=== PATIENT | female | born 1935 | race Caucasian/White ===

== ENCOUNTER 2020-01-01 15:59 | Observation (INO) | payer MEDICARE, OTHER ==
[~2020-01-01] VITALS: Ht 162.6 cm; Wt 57.1 kg
[~2020-01-01 15:59] MED LIST: Aspir 8181 MG PO; CALCIT950 PO; CLOP75 PO; ESTR25VT PV; GLUCHON PO; LOVA40 PO; MACROBID PO; PRELIEF PO; ZOLP10 PO
[2020-01-01 16:39] LABS: BASOPHILS ABSOLUTE AUTO 0.04 K/mm3 (0.00-0.23); BASOPHILS PERCENT AUTO 1 % (0-2); EOSINOPHILS PERCENT AUTO 3 % (0-6); Hematocrit 38.7 % (33.0-51.0); Hemoglobin 12.3 g/dL (11.5-16.0); IMMATURE GRAN ABSOLUTE AUTO 0.02 K/mm3 (0.00-0.10); IMMATURE GRAN PERCENT AUTO 0 % (0-1); LYMPHOCYTES ABSOLUTE AUTO 1.31 K/mm3 (0.84-5.20); LYMPHOCYTES PERCENT AUTO 17 % (21-46); MONOCYTES ABSOLUTE AUTO 0.73 K/mm3 (0.16-1.47); MONOCYTES PERCENT AUTO 9 % (4-13); Mean Corpuscular HGB 28.3 pg (26.0-34.0); Mean Corpuscular HGB Conc 31.8 g/dL (31.5-36.5); Mean Corpuscular Volume 89 fL (80-100); Mean Platelet Volume 10.5 fL (9.1-12.4); NEUTROPHILS ABSOLUTE AUTO 5.45 K/mm3 (1.96-9.15); NEUTROPHILS PERCENT AUTO 70 % (41-73); Platelet Count 315 K/mm3 (150-400); RDW Coefficient Variation 13.3 % (11.7-14.2); RDW Standard Deviation 43.8 fL (35.1-46.3); Red Blood Cell Count 4.34 M/mm3 (3.80-5.20); White Blood Cell Count 7.75 K/mm3 (4.00-11.30)
[2020-01-01 16:51] LABS: Alanine Aminotransfer (ALT/SGP 27 U/L (12-78); Albumin, Blood 3.3 g/dL (3.4-5.0); Alk Phos 53 U/L (50-136); Anion Gap 7 mmol/L (6-16); Aspartate Aminotrans (AST/SGOT 27 U/L (12-37); Bilirubin, Total 0.4 mg/dL (0.1-1.0); Blood Urea Nitrogen 23 mg/dL (8-24); Bun/Creatinine Ratio 28.7 (12.0-20.0); CO2, Blood 26 mmol/L (21-32); Chloride, Blood 108 mmol/L (98-108); Globulin, Blood 3.2 g/dL (2.2-4.0); Glomerular Filtration Rate >60 (60-); Glucose, Blood 96 mg/dL (70-99); Potassium, Blood 4.4 mmol/L (3.5-5.5); Sodium, Blood 141 mmol/L (136-145); Total Protein, Blood 6.5 g/dL (6.4-8.2)
[2020-01-01] MEDS ORDERED: LOSA25 PO (19:10)
[2020-01-01] MEDS ORDERED: FLUT.05NI (19:11)
[2020-01-01 19:36] LABS: Cholesterol 162 mg/dL (50-200); HDL Cholesterol 41 mg/dL (>39); LDL/HDL RATIO 2.4; Low Density Lipoprotein Chol 100 mg/dL (0-110); Triglycerides 106 mg/dL (30-160); Very Low Density Lipoprot Chol 21 mg/dL (6-32)
--- NOTE | 2020-01-02 05:41 | NUR ---
SHIFT SUMMARY RECIEVED REPORT FROM MARGUERITE WHEAT, ED @ 2107. ARRIVED TO MEDICAL UNIT @ 2101; MINIMAL ASSISTANCE NEEDED FOR TRANSFER. ORIENTED TO ROOM AND CALL SYSTEM. A/O, ABLE TO MAKE NEEDS KNOWN. COOPERATIVE WITH CARE. HOPEFUL TO RETURN HOME THIS DAY AFTER TESTING IS COMPLETE. C/O HEADACHE; MEDICATED PER EMAR. APPEARED TO REST MUCH OF SHIFT. NO ACUTE CHANGES NOTED. NEURO EXAM WNL; GAIT STEADY. VSS/AFEBRILE. BED REAMINS IN LOWEST POSITION. CALL LIGHT AND BELONGINGS WITHIN REACH. WCTM. REPORT TO LASHON WHEAT.
--- NOTE | 2020-01-02 18:08 | NUR ---
PATIENT HAS BEEN COOPERATIVE AND PLEASANT WITH STAFF. NO COMPLAINTS OF PAIN OR DISCOMFORT. BP HAS BEEN ELEVATED AND THE PHYSCIAN HAS BEEN ADJUSTING MEDICATIONS TO ATTEMPT TO HAVE BETTER CONTROL OVER HER BP WITHOUT BOTTOMING OUT HER HR TOO MUCH. PATIENT IS ALERT AND ORIENTED AND INDEPENDANT. SHE IS IN HER ROOM RESTING AT THIS TIME. WILL CONTINUE TO MONITOR AND PROVIDE CARE NEEDED.
[2020-01-03 04:51] LABS: BASOPHILS ABSOLUTE AUTO 0.04 K/mm3 (0.00-0.23); BASOPHILS PERCENT AUTO 1 % (0-2); EOSINOPHILS PERCENT AUTO 4 % (0-6); Hematocrit 39.7 % (33.0-51.0); Hemoglobin 12.4 g/dL (11.5-16.0); IMMATURE GRAN ABSOLUTE AUTO 0.01 K/mm3 (0.00-0.10); IMMATURE GRAN PERCENT AUTO 0 % (0-1); LYMPHOCYTES ABSOLUTE AUTO 1.55 K/mm3 (0.84-5.20); LYMPHOCYTES PERCENT AUTO 23 % (21-46); MONOCYTES ABSOLUTE AUTO 0.76 K/mm3 (0.16-1.47); MONOCYTES PERCENT AUTO 11 % (4-13); Mean Corpuscular HGB 27.9 pg (26.0-34.0); Mean Corpuscular HGB Conc 31.2 g/dL (31.5-36.5); Mean Corpuscular Volume 89 fL (80-100); NEUTROPHILS ABSOLUTE AUTO 4.17 K/mm3 (1.96-9.15); NEUTROPHILS PERCENT AUTO 61 % (41-73); Platelet Count 272 K/mm3 (150-400); RDW Coefficient Variation 13.3 % (11.7-14.2); RDW Standard Deviation 43.7 fL (35.1-46.3); Red Blood Cell Count 4.45 M/mm3 (3.80-5.20); White Blood Cell Count 6.83 K/mm3 (4.00-11.30)
[2020-01-03 05:13] LABS: Anion Gap 6 mmol/L (6-16); Blood Urea Nitrogen 19 mg/dL (8-24); Bun/Creatinine Ratio 23.8 (12.0-20.0); CO2, Blood 23 mmol/L (21-32); Calcium, Blood 9.1 mg/dL (8.5-10.1); Chloride, Blood 112 mmol/L (98-108); Glomerular Filtration Rate >60 (60-); Glucose, Blood 100 mg/dL (70-99); Potassium, Blood 4.2 mmol/L (3.5-5.5); Sodium, Blood 141 mmol/L (136-145)
--- NOTE | 2020-01-03 05:20 | NUR ---
SHIFT SUMMARY- PT. A&O, PLEASANT AND COOPERATIVE WITH CARE. NO DEFICITS NOTED. PT. C/O HADLEY 08/18. MEDICATED PER EMAR WITH GOOD EFFECT. PT. RESTING QUIETLY T/O THE NIGHT. NO APPARENT DISTRESS NOTED. ANTICIPATING D/C TO HOME TODAY. CALL LIGHT WITHIN REACH AND SIDE RAILS UPX2. WILL CONT TO MONITOR.
--- NOTE | 2020-01-03 16:46 | NUR ---
PM BLOOD GLUCOSE 240 - PT ENTERED INTO INSULIN PUMP FOR BOLUS
--- NOTE | 2020-01-03 17:05 | NUR ---
SHIFT SUMMARY PT A&Ox4; CALM AND COOPERATIVE [facility] CARE. PT RESTING IN BED DURING SHIFT. UP TO BATHROOM IND. PT REPROTS HEADACHE FOR MAJORITY OF SHIFT, MEDICATED WITH TYLENOL WITH MNIMAL EFFECT. PT DENIES CHEST PAIN/PRESSURE, SOB, NASUEA AND DIZZINESS T/O SHIFT. PT HAD CTA COMPLETED THIS AM. ELEVATED BP NOTED; MEDICATED WITH SCHEDULE AND PRN MEDICATIONS. NO OTHER ACUTE CHANGES NOTED DURING SHIFT. WILL CONTINUE TO MONITOR UNTIL REPORT GIVEN TO ONCOMING RN.
[2020-01-03] MEDS ORDERED: LOSA50 PO (18:17)
[2020-01-03] MEDS ORDERED: AMLO5 PO (18:17)
== END 2020-01-03 19:10 | disposition home or self-care (01) ==
LOC: ER 15:59 → MEDS 16:00
PROVIDERS: Family Medicine; Physician Assistant; ADMIT Hospitalist
DX: R27.0 Ataxia, unspecified (principal); H53.2 Diplopia; I10 Essential (primary) hypertension; R51 Headache; E78.5 Hyperlipidemia, unspecified; Z86.73 Personal history of transient ischemic attack (TIA), and cerebral infarction without residual deficits; I65.23 Occlusion and stenosis of bilateral carotid arteries; I70.8 Atherosclerosis of other arteries; Z87.891 Personal history of nicotine dependence; Z79.899 Other long term (current) drug therapy; Z88.2 Allergy status to sulfonamides; Z79.82 Long term (current) use of aspirin
CPT/HCPCS: 36415; 70450; 70496; 70498; 80048; 80053; 80061; 85025; 85651; 93005; 93010; 93306; 93880; 96374; 96376; 97110; 97116; 97161; 99285-25; A9270; A9270-GY; G0378; J0360; Q9967